=== PATIENT | female | born 1955 | race African-American/Black ===

== ENCOUNTER 2017-04-13 05:41 | Day surgery (SDC) | payer MEDICARE ==
[2017-04-13] MEDS ORDERED: CEFAZOLIN 2 GM/50 ML (PMX) 50 ML IVPB (06:42)
[2017-04-13] MEDS ORDERED: SODIUM CL BACTERIOSTATIC 30 ML INJ (07:04)
[2017-04-13] MEDS ORDERED: MIDAZOLAM 1 MG/ML 2 ML INJ ×3 (07:44→09:42)
[2017-04-13] MEDS: morphine SULFATE/PF (10 MG/10 ML) INJ (08:16)
[2017-04-13] MEDS ORDERED: ONDANSETRON 4 MG INJ (09:24)
[2017-04-13] MEDS ORDERED: ROCURONIUM 50 MG INJ (09:24)
[2017-04-13] MEDS ORDERED: PROPOFOL 20 ML (09:24)
[2017-04-13] MEDS ORDERED: LIDOCAINE 2% (SDV) 5 ML INJ (09:24)
[2017-04-13] MEDS ORDERED: CEFAZOLIN 1 GM INJ (09:25)
[2017-04-13] MEDS ORDERED: KETOROLAC 30 MG INJ (09:30)
[2017-04-13] MEDS ORDERED: morphine 10 MG INJ (09:30)
[2017-04-13] MEDS ORDERED: HYDROCODONE/APAP (5/325) TAB PO (09:30)
[2017-04-13] MEDS: MEPERIDINE 25 MG INJ IV (09:51)
[2017-04-13] MEDS: MIDAZOLAM 1 MG/ML 2 ML INJ IV ×2 (09:53→10:33)
[2017-04-13] MEDS ORDERED: LABETALOL HCL 20MG INJ IV (10:00)
[2017-04-13] MEDS ORDERED: FENTAnyl 50 MCG/ML VIAL IV (10:00)
[2017-04-13] MEDS ORDERED: hydrALAzine 20 MG INJ IV (10:00)
[2017-04-13] MEDS ORDERED: DIPHENHYDRAMINE 50 MG INJ IV (10:00)
[2017-04-13] MEDS ORDERED: HYDROmorphONE (0.2 MG/ML) 10ML SYG IV (10:00)
[2017-04-13] MEDS: HYDROmorphONE (0.2 MG/ML) 10ML SYG IV ×4 (10:20→10:37)
[2017-04-13] MEDS: ONDANSETRON 4 MG INJ IV (10:47)
[2017-04-13] MEDS: HYDROCODONE/APAP (5/325) TAB PO (10:48)
== END 2017-04-13 13:15 | disposition home or self-care (01) ==
LOC: REC 05:41 → SDS 05:41
DX: M23.200 Derangement of unspecified lateral meniscus due to old tear or injury, right knee (principal); M67.51 Plica syndrome, right knee; M23.8X1 Other internal derangements of right knee; M65.9 Synovitis and tenosynovitis, unspecified; M19.90 Unspecified osteoarthritis, unspecified site; E66.01 Morbid (severe) obesity due to excess calories; Z68.32 Body mass index [BMI] 32.0-32.9, adult; I10 Essential (primary) hypertension; Z88.0 Allergy status to penicillin
CPT/HCPCS: 29881; 71045